=== PATIENT | female | born 1950 | race African-American/Black ===

== ENCOUNTER 2017-07-12 13:20 | Emergency (ER) | payer OTHER ==
[~2017-07-12] VITALS: Ht 154.9 cm; Wt 120.2 kg
--- NOTE | ~2017-07-12 | EKG ---
[place] [place] [address] [facility] [place] [address] ELECTROCARDIOGRAM REPORT Name: SUSANNE ARANA Room #: [facility]#: [id number] Admission: 07/12/17 Attend Phys: Discharge: 07/12/17 Date of : 50 Report #: [id number] THIS REPORT FOR: //name// [facility] ED Test Date: 2017-07-12 Test Time: 13:28:39 Pat Name: SUSANNE ARANA Department: Room: Gender: F Envelope Adjuster: [id number] : 1950 Requested By: Zainab Fleming Order Number: [id number] MD: Tom Fields Measurements Intervals [place] Rate: 62 P: 28 [place]: 194 QRS: 3 QRSD: 95 T: 21 QT: 476 QTc: 484 Interpretive Statements Sinus rhythm Normal tracing Compared to ECG 08/08/2015 21:52:16 Ventricular premature complex(es) no longer present Electronically Signed On 07-13-2017 13:47:57 CDT by Tom Fields [email or web address] <ELECTRONICALLY SIGNED> By: Tom Fields MD, [facility] 07/13/17 1347 1328 1328 Tom Fields MD, [facility] /EPI
[~2017-07-12 13:20] MED LIST: ABILIFY 5 MG TAB5 M1 PO; ACID CONTROLLER20 MG PO; AMLODIPINE BESYL5 MG PO; ASPIR 8181 MG PO; CARVEDILOL25 MG PO; CEFTIN500 MG PO; COLACE100 MG PO; COUMADIN 2.5MG2.5 M1 PO; COUMADIN 3 MG TA3 MG PO; DUONEB 2.5-0.5 M3 ML INH; FLONASE 0.05%50 MCG NASAL; HYDROCHLOROTHIA25 M2 PO; HYDROCODON-ACE1 EAC7 PO; HYDROCODONE-AP1 EAC6 PO; JANTOVEN5 MG PO; JANUVIA25 MG PO; JANUVIA50 MG PO; KEPPRA 500 MG500 M1 PO; LAMICTAL 25 MG25 MG PO; LAMICTAL100 MG PO; LEVAQUIN 500 M500 M2 PO; MILK OF MA2400 MG/10 PO; MIRALAX17 GM PO; NORCO 5-325 TA1 EACH PO; OXYCODONE HCL 55 MG PO; OXYCONTIN10 M1 PO; PATANOL5 ML OPHTHALMIC; PERCOCET; PRILOSEC OTC20 MG PO; RISPERIDONE1 MG PO; SENNA S TABLET1 EACH PO; SERTRALINE HCL50 MG PO; TRAZODONE PO; TYLENOL325 MG PO; ZOCOR 10 MG TAB10 MG PO; ZOLOFT50 MG PO
[2017-07-12] MEDS ORDERED: ARIPIPRAZOLE10 MG PO (13:30)
[2017-07-12] MEDS ORDERED: NORVASC2.5 MG PO (13:30)
[2017-07-12] MEDS ORDERED: OMEPRAZOLE 20 M20 M1 PO (13:30)
[2017-07-12 13:47] LABS: BASOPHILS 0.9 % (0.0-2.0); EOSINOPHILS 2.7 % (0.0-3.0); HEMATOCRIT 39.5 % (37.0-47.0); HEMOGLOBIN 12.3 gm/dL (12.0-15.0); MANUAL DIFF NO; MCH 27.3 pg (26.0-34.0); MCHC 31.2 g/dL (28.0-37.0); MCV 87.3 fL (80.0-100.0); MONOCYTES 9.6 % (1.0-8.0); PLATELET COUNT 301 thou/uL (150-400); POLYS 54.8 % (36.0-66.0); RBC 4.52 mil/uL (4.20-5.00); RDW 15.4 % (10.5-14.5); WBC 7.3 thou/uL (4.0-11.0)
[2017-07-12 13:55] LABS: CREATININE 1.5 mg/dL (0.6-1.0); POTASSIUM 4.1 mmol/L (3.5-5.1)
== END 2017-07-12 16:15 ==
LOC: ER 13:20
PROVIDERS: Emergency Medicine
DX: J06.9 Acute upper respiratory infection, unspecified (principal); G47.33 Obstructive sleep apnea (adult) (pediatric); J44.9 Chronic obstructive pulmonary disease, unspecified; E78.5 Hyperlipidemia, unspecified; E11.22 Type 2 diabetes mellitus with diabetic chronic kidney disease; N18.3 Chronic kidney disease, stage 3 (moderate); Z90.710 Acquired absence of both cervix and uterus; Z96.651 Presence of right artificial knee joint; Z87.440 Personal history of urinary (tract) infections; Z88.5 Allergy status to narcotic agent; Z88.6 Allergy status to analgesic agent

== ENCOUNTER 2020-12-04 18:22 | Inpatient (IN) | payer OTHER ==
[~2020-12-04] VITALS: Ht 165.1 cm; Wt 81.4 kg
[2020-12-04 18:22] VITALS: BP 138/89
[~2020-12-04 18:22] MED LIST changes: +ARIPIPRAZOLE10 MG PO; +CEFDINIR300 MG PO; +NORVASC2.5 MG PO; +OMEPRAZOLE 20 M20 M1 PO; +VITAMIN D50000 UNIT PO
[2020-12-04] MEDS ORDERED: PROTONIX40 M4 PO (18:26)
[2020-12-04] MEDS ORDERED: MILK OF MA400 MG/5 M PO (18:26)
[2020-12-04] MEDS ORDERED: MINIPRESS2 MG PO (18:27)
[2020-12-04] MEDS ORDERED: ZINC SULFATE220 MG PO (18:28)
[2020-12-04] MEDS ORDERED: DERMACINRX5000 UNI1 PO (18:28)
[2020-12-04] MEDS ORDERED: VITAMIN C500 M2 PO (18:28)
[2020-12-04 18:58] LABS: ABSOLUTE NEUTROPHILS 2.6 thou/uL (1.4-8.2); BASOPHILS 0.4 % (0.0-2.0); HEMATOCRIT 39.5 % (37.0-47.0); HEMOGLOBIN 12.8 gm/dL (12.0-15.0); LYMPHOCYTES 28.1 % (24.0-44.0); MCH 29.3 pg (26.0-34.0); MCHC 32.4 g/dL (28.0-37.0); MCV 90.3 fL (80.0-100.0); MONOCYTES 12.9 % (1.0-8.0); PLATELET COUNT 198 thou/uL (150-400); POLYS 58.6 % (36.0-66.0); RBC 4.37 mil/uL (4.20-5.00); RDW 16.1 % (10.5-14.5); WBC 4.3 thou/uL (4.0-11.0)
[2020-12-04 19:06] LABS: CALCIUM 8.9 mg/dL (8.5-10.1); CREATININE 1.6 mg/dL (0.6-1.0)
[2020-12-04 19:13] LABS: APTT 30.3 Seconds (24.5-32.8); INR 1.1
[2020-12-04 19:14] LABS: ALBUMIN 3.3 g/dL (3.4-5.0); TOTAL BILIRUBIN 0.4 mg/dL (0.2-1.0); TOTAL PROTEIN 8.4 g/dL (6.4-8.2)
[2020-12-05 05:22] LABS: CALCIUM 8.3 mg/dL (8.5-10.1); CREATININE 1.6 mg/dL (0.6-1.0); MAGNESIUM 2.3 mg/dL (1.8-2.4); POTASSIUM 4.1 mmol/L (3.5-5.1)
[2020-12-05 05:24] LABS: HEMATOCRIT 40.6 % (37.0-47.0); HEMOGLOBIN 12.4 gm/dL (12.0-15.0); MCH 28.4 pg (26.0-34.0); MCHC 30.6 g/dL (28.0-37.0); MCV 92.9 fL (80.0-100.0); RBC 4.37 mil/uL (4.20-5.00); RDW 16.5 % (10.5-14.5); WBC 4.5 thou/uL (4.0-11.0)
--- NOTE | 2020-12-05 07:40 | EKG ---
[address] [place] [address] ELECTROCARDIOGRAM REPORT Name: SUSANNE ARANA Room #: 170-1 ADM IN M.R.#: [id number] Admission: 12/04/20 Attend Phys: Orestes La MD Discharge: Date of : 50 Report #: [id number] [facility] ED Test Date: 2020-12-04 Test Time: 18:50:17 Pat Name: SUSANNE ARANA Department: Room: 170 Gender: F Purchasing Analyst: Tess CORTEZ : 1950 Requested By: Jordan Mishra Order Number: [id number] MD: Dhruv Torres Measurements Intervals [place] Rate: 86 P: 29 LA: 167 QRS: -3 QRSD: 94 T: 20 QT: 380 QTc: 455 Interpretive Statements Sinus rhythm Consider left atrial enlargement Compared to ECG 04/21/2018 06:49:43 Sinus bradycardia no longer present Prolonged QT interval no longer present Electronically Signed On 12-05-2020 7:40:20 [employer]UC[employer] by Dhruv Torres [email or web address] <ELECTRONICALLY SIGNED> By: Dhruv Torres MD, [facility] 12/05/20 0740 49 49 Dhruv Torres MD, FAC /EPI
--- NOTE | 2020-12-05 10:31 | NUR ---
70 year old female presenting to the ED via EMS from [facility] for a reported fever today and worsening mental status. Pt was found to be hypoxic at her longterm. COVID Antigen Positive in ED with symptoms of temp of 103.1. At current patient is on 2 liters per NC and sats have since maintained above 95%. The patient has been admitted to a hospitalist for Acute hypoxic respiratory failure, COPD/JEROME, COVID-19 infection W/ Fever, HTN, HLD, Type 2 DM, PTSD/depression/bipolar disorder, CKD and DVT/GI Prophylaxis. Ciara Li is listed as the daughter of next of Kin at [phone] and other daughter Adriana Ceja is listed as the person of notification at [phone]. Called and spoke with Ciara cota daughter and explained CM role. Ciara did state that both she and her sister Adriana can be updated on information and explained we would move to contacting one family member by calling her first to which she agreed. CM will follow for discharge needs as daughter discussed a return to [facility] upon discharge.
--- NOTE | 2020-12-05 12:44 | NUR ---
ID AT BEDSIDE SEEING PATIENT
--- NOTE | 2020-12-05 13:34 | HC ---
[facility] [place] [address] CONSULTATION Name: SUSANNE ARANA Room #: 170-1 ADM IN M.R.#: [id number] Admission: 12/04/20 Attend Phys: Orestes aL MD Discharge: Date of : 50 Report #: [id number] THIS REPORT FOR: cc: Terrell Wallace MD, Ramilo MD Barry, Joseph W. MD ~ DATE OF SERVICE: 12/05/2020 INFECTIOUS DISEASE CONSULTATION ATTENDING PHYSICIAN: Dr. La. REASON FOR EVALUATION: COVID-19 infection, complicated by altered mental status, hypoxemia with pneumonitis with significant underlying medical disease burden including diabetes mellitus, previous stroke, COPD. She apparently lives in a facility, was found to be more encephalopathic, febrile when evaluated, felt to be hypoxemic. She was referred to the Emergency Room where she was evaluated and found to be altered. Chest x-ray was fairly unremarkable including cardiomegaly. She had an elevated creatinine of 1.6. Lactic acid was normal at 0.7. Procalcitonin 0.08, was positive for COVID antigen. She has been placed on oxygen at 2 liters per nasal cannula. She was febrile on admission at 103.1. She is unable to give any more details of her history. She was empirically started on corticosteroids. ALLERGIES: LISTED TO PENICILLINS, MORPHINE, CODEINE, OXYCODONE, TRAMADOL. CURRENT MEDICATIONS: Include cholecalciferol, aripiprazole, sertraline, aspirin, amlodipine, atorvastatin, heparin subcutaneously twice a day, ascorbic acid, carvedilol, pantoprazole, insulin lispro sliding scale, methylprednisolone. PAST MEDICAL HISTORY: Peripheral vascular disease, epilepsy, diabetes mellitus type 2, renal insufficiency, obstructive sleep apnea, COPD, hyperlipidemia. SOCIAL HISTORY: Nonsmoker. No illicit drug use. No current ethanol. FAMILY HISTORY: Noncontributory. REVIEW OF SYSTEMS: Not obtainable. PHYSICAL EXAMINATION: GENERAL: She appears chronically ill and undernourished. She is barely arousable. She appears to be in [id number]-fe-nklsqzrp distress. VITAL SIGNS: T-max 103.1, more recently 99, pulse 67, respirations 16, blood pressure 110/68. [address] [address] CONSULTATION Name: SUSANNE ARANA Room #: 1701 ADM IN M.R.#: [id number] Admission: 12/04/20 Attend Phys: Orestes La MD Discharge: Date of : 50 Report #: [id number] SKIN: Warm, dry, no rashes. HEENT: Nasal cannula in place. NECK: Appears to be supple. LUNGS: Diminished breath sounds. Few scattered crackles. HEART: Regular. I do not appreciate a murmur. ABDOMEN: Mildly obese, soft. There are no overt peritoneal signs. GENITOURINARY AND RECTAL: Deferred. LABORATORY DATA: Blood cultures sterile thus far. Electrolytes: Sodium 145, potassium 4.1, chloride 110, bicarbonate is 21, anion gap of 14, BUN and creatinine 34 and 1.6. CBC: White count of 4.5, H and H 12.4 and 40.6, platelets of 172. Sed rate of 56. Ferritin 956. ASSESSMENT: COVID-19 infection, complicated by respiratory failure. Plain radiograph without evidence of pneumonitis. I think likely has underlying changes make her it a high risk for progression. I think it is reasonable to initiate therapy with remdesivir as well as ivermectin and empiric antibacterial, remains quite tenuous at this point, difficult to ascertain if there is an occult process going on in addition to this. We will see how she does clinically over the next 24-48 hours. <ELECTRONICALLY SIGNED> By: Gurjit Sifuentes MD 12/05/20 1334 1256 1331 Gurjit Sifuentes MD /nt
[2020-12-05 16:24] VITALS: BP 124/76
[2020-12-05 16:26] LABS: URINE BILIRUBIN NEGATIVE (Negative); URINE BLOOD 3+ (Negative); URINE CLARITY CLOUDY; URINE COLOR YELLOW; URINE GLUCOSE-RANDOM* NEGATIVE (Negative); URINE KETONES NEGATIVE (Negative); URINE NITRITE-REFLEX NEGATIVE (Negative); URINE PROTEIN (DIPSTICK) 2+ (Negative); URINE SPECIFIC GRAVITY 1.025 (1.005-1.035); URINE UROBILINOGEN 0.2 E.U./dl (0.2-1.0)
[2020-12-05 16:28] LABS: URINE LEUKOCYTES-REFLEX 3+ (Negative)
[2020-12-05 16:35] LABS: BACTERIA-REFLEX >30 Many /HPF (None Seen); CASTS None Seen /LPF (None Seen); CRYSTALS None Seen /LPF (None Seen); SQUAMOUS None Seen /LPF (0-3); URINE RBC 0-2 Rare /HPF (0-2); URINE WBC-REFLEX >25 Many /HPF (0-5)
--- NOTE | 2020-12-05 16:53 | NUR ---
PT IS FROM [facility] FAXED CLINICAL UPDATE TO FACILITY SPOKE WITH YIN IN ADM SHE RECEIVED UPDATE.
[2020-12-05 18:11] VITALS: BP 125/73
[2020-12-05 18:23] VITALS: BP 111/66
[2020-12-05 20:24] VITALS: BP 115/71
[2020-12-06 00:03] VITALS: BP 116/72
[2020-12-06] MEDS ORDERED: LUBRICANT EYE D10 ML EA. EYE (01:41)
--- NOTE | 2020-12-06 03:15 | NUR ---
PT ARRIVED TO UNIT AT 1830. PT SETTLED AND ASSESSMENT COMPLETED. CARE PLAN, INTERVENTIONS, AND MED REC COMPLETED. MICHAEL INSERTED IN ER. MRSA PCR COLLECTED. PT AMS, AND PAPERWORK FROM SNF STATES PT HAS DEMENTIA. PT ALSO COVID +. FOLLOWING POC WITH IVF AND IVPB ANTIBIOTICS.
[2020-12-06 05:36] VITALS: BP 118/68
[2020-12-06 06:03] LABS: HEMATOCRIT 43.9 % (37.0-47.0); HEMOGLOBIN 13.3 gm/dL (12.0-15.0); MCH 28.5 pg (26.0-34.0); MCHC 30.3 g/dL (28.0-37.0); MCV 94.1 fL (80.0-100.0); RBC 4.66 mil/uL (4.20-5.00); RDW 16.8 % (10.5-14.5); WBC 4.2 thou/uL (4.0-11.0)
[2020-12-06 07:12] LABS: CALCIUM 8.7 mg/dL (8.5-10.1); CREATININE 1.4 mg/dL (0.6-1.0); DIRECT BILIRUBIN 0.1 mg/dL (<0.1-0.2); MAGNESIUM 2.4 mg/dL (1.8-2.4); PHOSPHORUS 4.4 mg/dL (2.6-4.7); POTASSIUM 4.6 mmol/L (3.5-5.1); TOTAL BILIRUBIN 0.3 mg/dL (0.2-1.0); TOTAL PROTEIN 7.8 g/dL (6.4-8.2)
[2020-12-06 07:24] VITALS: BP 111/65
--- NOTE | 2020-12-06 13:55 | NUR ---
FAXED CLINICAL UPDATES TO [facility] WITH COVID RESULTS. P [phone]; FAX [phone]
[2020-12-06 15:05] VITALS: BP 106/65
--- NOTE | 2020-12-06 16:21 | NUR ---
INITIAL ASSESSMENT: CONOR reviewed chart and spoke with nursing and attending physician. Pt was admitted from [facility] due to hypoxia. Pt placed in Enhanced Isolation due to COVID-19. Pt is afebrile and on 2L of O2. Pt is on IV abx and IV steroids. Pt is on Remdesivir and Ivermectin. regional planner faxed clinical info to [facility] for review. CONOR spoke with Meghann in admissions, who states that they are not able to accept pt back, as they have closed their COVID unit. Pt would be able to go to another [facility] facility who is taking COVID pts ([facility]). [facility] staff to notify pt's family. CONOR is following to assist as needed with discharge planning.
--- NOTE | 2020-12-06 18:58 | NUR ---
RN ASSUMED PT'S CARE AT 0700AM, PT KNOWS HER NAME , PT CAN FOLLOW SOME COMMANDS, BUT PT IS CONFUSED, PT NEEDS HELP MEALS AND ADL, PT IS ON O2 2L/MIN/NC , PT'S VS ARE STABLE, PT IS CONTINUING IV FLUID AND IV ABX.PT DOES NOT HAVE FEVER AND SOB AT DAY SHIFT.
[2020-12-06 19:12] VITALS: BP 120/74
--- NOTE | 2020-12-06 22:24 | NUR ---
PT RESTING IN BED. IVF INTACT. O2 PER NC. LUNGS DIMINISHED. MICHAEL TO JAMES. PT TALKATIVE, ASKING ABOUT HER MEDICATIONS AND FOR WATER. STAFF TO REPOSITION PATIENT. BED ALARM ON.
[2020-12-07 03:56] VITALS: BP 121/68
[2020-12-07 06:15] LABS: HEMATOCRIT 38.6 % (37.0-47.0); HEMOGLOBIN 11.9 gm/dL (12.0-15.0); MCH 28.4 pg (26.0-34.0); MCHC 30.7 g/dL (28.0-37.0); MCV 92.4 fL (80.0-100.0); RBC 4.17 mil/uL (4.20-5.00); RDW 16.2 % (10.5-14.5); WBC 4.4 thou/uL (4.0-11.0)
[2020-12-07 06:34] LABS: ALBUMIN 2.6 g/dL (3.4-5.0); ANION GAP 12 mmol/L (7-16); BUN 36 mg/dL (7-18); CALCIUM 8.6 mg/dL (8.5-10.1); CHLORIDE 113 mmol/L (98-107); CO2 22 mmol/L (21-32); CREATININE 1.2 mg/dL (0.6-1.0); DIRECT BILIRUBIN < 0.1 mg/dL (<0.1-0.2); GLUCOSE 146 mg/dL (74-106); PHOSPHORUS 2.2 mg/dL (2.6-4.7); SGOT 40 U/L (15-37); SGPT 16 U/L (14-59); SODIUM 147 mmol/L (136-145); TOTAL BILIRUBIN 0.2 mg/dL (0.2-1.0); TOTAL PROTEIN 7.1 g/dL (6.4-8.2)
[2020-12-07 06:36] LABS: POTASSIUM 3.5 mmol/L (3.5-5.1)
[2020-12-07 07:37] VITALS: BP 122/77
--- NOTE | 2020-12-07 13:39 | NUR ---
CONOR reviewed chart and spoke with nursing and attending physician. Pt remains in Enhanced Isolation. Pt is afebrile and on2L of O2. Pt is on IV abx and IV steroids. Pt is on Ivermectin and Remdesivir. CONOR spoke with pt's dtr, Ciara, via phone to discuss plan for pt to discharge to an alternate [facility] facility due to COVID. [facility] is accepting COVID pts at this time. CONOR sent message for Elina in admissions at [facility]. Pt info was forwarded to [facility] from [facility]. Pt's dtr is agreeable with discharge plan. CONOR is following to assist as needed with discharge planning.
[2020-12-07 15:13] VITALS: BP 104/68
--- NOTE | 2020-12-07 15:44 | NUR ---
PT CARE ASSUMED AT 0700, ALERT AND ORIENTED X3, PT DENIES PAIN, NAUSEA AND VOMITTING. PT IS ON 2L OF OXYGEN, NO SIGNS OF DISTRESS NOTED. ASSESSMENT AND VITALS STABLE. MICHAEL IN PLACE, PATENT AND SECURED. REPOSITIONED EVERY [address] WILL CONTINUE TO MONITOR. PT DAUGHTER CALLED AND WAS UPDATED ABPUT PT CARE.
[2020-12-07 19:26] VITALS: BP 111/69
--- NOTE | 2020-12-07 21:52 | NUR ---
PT ALERT X2. VSS 98.8. 98% ON 2LNC NO C/O PAIN. NO S/S DISTRESS. BED DOWN, CALL LIGHT IN REACH SIDE RAILS UP X2. BED ALARM ON. NO S/S DISTRESS PRESENTLY.
[2020-12-08 03:46] VITALS: BP 117/69
--- NOTE | 2020-12-08 05:17 | NUR ---
PT RESTING QUIETLY. VSS ASSESSMENT UNCHANGED. PROGRESSING TOWARDS D/C GOALS.
[2020-12-08 06:11] LABS: HEMOGLOBIN 11.4 gm/dL (12.0-15.0); MCH 28.5 pg (26.0-34.0); MCHC 31.8 g/dL (28.0-37.0); MCV 89.8 fL (80.0-100.0); RBC 4.01 mil/uL (4.20-5.00); RDW 15.9 % (10.5-14.5); WBC 3.9 thou/uL (4.0-11.0)
[2020-12-08 06:30] LABS: ALBUMIN 2.5 g/dL (3.4-5.0); ANION GAP 11 mmol/L (7-16); BUN 32 mg/dL (7-18); CALCIUM 8.5 mg/dL (8.5-10.1); CHLORIDE 112 mmol/L (98-107); CO2 24 mmol/L (21-32); CREATININE 1.2 mg/dL (0.6-1.0); DIRECT BILIRUBIN < 0.1 mg/dL (<0.1-0.2); GLUCOSE 159 mg/dL (74-106); MAGNESIUM 1.9 mg/dL (1.8-2.4); PHOSPHORUS 1.5 mg/dL (2.5-4.9); POTASSIUM 3.2 mmol/L (3.5-5.1); SGOT 29 U/L (15-37); SGPT 20 U/L (30-65); SODIUM 147 mmol/L (136-145); TOTAL BILIRUBIN 0.2 mg/dL (0.2-1.0); TOTAL PROTEIN 6.9 g/dL (6.4-8.2)
[2020-12-08 07:54] VITALS: BP 114/69
--- NOTE | 2020-12-08 10:49 | NUR ---
CARE ASSUMED AT 0700, ALERT AND ORIENTED X3, FORGETFUL AT TIMES. PT DENIES ANY PAIN, NAUSEA AND VOMITTING. PT IS ON 1L OF OXYGEN, NO SIGNS OF DISTRESS. MICHAEL IN PLACE, SECURED AND PATENT. FALL PRECAUTION IN PLACE. WILL CONTINUE TO MONITOR.
--- NOTE | 2020-12-08 14:50 | NUR ---
NOTE PER WAREHOUSE ASSOCIATE DRIVER: CONOR spoke with nursing and attending physician. Pt remains in Enhanced Isolation. Pt is progressing towards goals for discharge. Pt is completing course of Remdesivir. Discharge to [facility] is anticipated for tomorrow. CONOR spoke with Elina at [facility] who states they are able to accept pt from a clinical standpoint. Awaiting confirmation of bed availability. materials planner/production planner to fax updates to [facility] for review. CONOR spoke with pt's dtr, Ciara, via phone to provide update and notify of weekend discharge. Ciara is aware and agreeable with discharge plan. Ciara to be notified when discharge arrangements are in place. Finalized discharge orders will need to be faxed to [facility] when available. Pt's chart will need to be copied. Nursing will need to call report. CONOR is following and is available to assist should needs arise. [facility]
[2020-12-08 15:19] LABS: URINE BILIRUBIN NEGATIVE (Negative); URINE BLOOD 2+ (Negative); URINE CLARITY CLEAR; URINE COLOR YELLOW; URINE GLUCOSE-RANDOM* NEGATIVE (Negative); URINE KETONES NEGATIVE (Negative); URINE NITRITE-REFLEX NEGATIVE (Negative); URINE PROTEIN (DIPSTICK) TRACE (Negative); URINE SPECIFIC GRAVITY 1.015 (1.005-1.035); URINE UROBILINOGEN 0.2 E.U./dl (0.2-1.0)
[2020-12-08 15:38] LABS: URINE LEUKOCYTES-REFLEX 1+ (Negative)
[2020-12-08 15:39] LABS: BACTERIA-REFLEX 1-9 Few /HPF (None Seen); SQUAMOUS 0-3 Few /LPF (0-3); URINE RBC 3-10 Few /HPF (0-2); URINE WBC-REFLEX 6-15 Few /HPF (0-5)
[2020-12-08 15:40] LABS: CASTS None Seen /LPF (None Seen); CRYSTALS None Seen /LPF (None Seen); YEAST-REFLEX Present (None Seen)
[2020-12-08 16:16] VITALS: BP 102/48
--- NOTE | 2020-12-08 17:12 | NUR ---
INCREASE PT OXYGEN UP TO 2L DUE O2 SAT 86%. PT O2 SAT AT 93 NOW.
[2020-12-08 19:37] VITALS: BP 145/90
[2020-12-09 04:02] VITALS: BP 151/89
--- NOTE | 2020-12-09 06:05 | NUR ---
VSS OVERNIGHT. PT IS A/0X2 WITH SOME CONFUSION, BUT IS PRETTY SHARP WITH THE SARCASM. MICHAEL IN PLACE WITH GOOD OUTPUT. POC WITH IVF AND IVPB ANTIBIOTICS. HOURLY ROUNDING.
[2020-12-09 08:48] VITALS: BP 128/77
[2020-12-09 08:53] LABS: HEMATOCRIT 37.3 % (37.0-47.0); HEMOGLOBIN 11.8 gm/dL (12.0-15.0); MCH 28.3 pg (26.0-34.0); MCHC 31.8 g/dL (28.0-37.0); RBC 4.19 mil/uL (4.20-5.00); RDW 16.1 % (10.5-14.5); WBC 4.1 thou/uL (4.0-11.0)
[2020-12-09 09:00] VITALS: BP 124/78
[2020-12-09 09:11] LABS: ALBUMIN 2.6 g/dL (3.4-5.0); ANION GAP 10 mmol/L (7-16); BUN 29 mg/dL (7-18); CALCIUM 8.9 mg/dL (8.5-10.1); CHLORIDE 106 mmol/L (98-107); CO2 26 mmol/L (21-32); CREATININE 1.1 mg/dL (0.6-1.0); DIRECT BILIRUBIN < 0.1 mg/dL (<0.1-0.2); GLUCOSE 166 mg/dL (74-106); MAGNESIUM 1.8 mg/dL (1.8-2.4); PHOSPHORUS 1.2 mg/dL (2.5-4.9); SGOT 26 U/L (15-37); SGPT 19 U/L (30-65); SODIUM 142 mmol/L (136-145); TOTAL BILIRUBIN 0.4 mg/dL (0.2-1.0); TOTAL PROTEIN 7.2 g/dL (6.4-8.2)
[2020-12-09 09:13] LABS: POTASSIUM 2.9 mmol/L (3.5-5.1)
[2020-12-09] MEDS ORDERED: BACTRIM DS TAB1 EACH PO (10:39)
[2020-12-09] MEDS ORDERED: IPRAT-ALBUT 0.5-3 ML INH (10:39)
[2020-12-09] MEDS ORDERED: PREDNISONE 10 M10 M1 PO (10:40)
[2020-12-09 15:48] VITALS: BP 124/78
--- NOTE | 2020-12-09 16:29 | NUR ---
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
[2020-12-09 17:02] VITALS: BP 124/78
--- NOTE | 2020-12-09 18:27 | NUR ---
TRANSPORTATION FINANCIAL MANAGEMENT PT TO SNF ABOUT 1800PM, PT'S R ARM PIV AND MICHAEL CATHETER HAD REMOVED , PT WAS TOLERATED.RN LEFT PHONE NUMBER TO SNF AND TRANSPORTATION PERSON TO ASK CALL BACK FOR REPORT, BECAUSE RN CANNOT REACH BY CALLING 2 TIMES TO SNF.
== END 2020-12-09 17:31 | DRG 871 ==
LOC: ER 18:22 → EROBS 20:37 → 3W 20:37 → EROBS 12-05 15:23 → 3W 12-05 18:07
PROVIDERS: Emergency Medicine; Nurse Practitioner Family; Specialist; ADMIT Internal Medicine; ATTEND Internal Medicine
PROC: XW033E5 Introduction of Remdesivir Anti-infective into Peripheral Vein, Percutaneous Approach, New Technology Group 5 (ICD-10-PCS; principal; 2020-12-05)
DX: A41.89 Other specified sepsis (principal); U07.1 COVID-19; J96.01 Acute respiratory failure with hypoxia; G92 Toxic encephalopathy; J12.82 Pneumonia due to coronavirus disease 2019; N39.0 Urinary tract infection, site not specified; N17.9 Acute kidney failure, unspecified; J44.0 Chronic obstructive pulmonary disease with (acute) lower respiratory infection; E87.0 Hyperosmolality and hypernatremia; E44.1 Mild protein-calorie malnutrition; E11.51 Type 2 diabetes mellitus with diabetic peripheral angiopathy without gangrene; G47.33 Obstructive sleep apnea (adult) (pediatric); E78.5 Hyperlipidemia, unspecified; G40.909 Epilepsy, unspecified, not intractable, without status epilepticus; E66.9 Obesity, unspecified; Z96.651 Presence of right artificial knee joint; Z66 Do not resuscitate; F43.10 Post-traumatic stress disorder, unspecified; N18.9 Chronic kidney disease, unspecified; I12.9 Hypertensive chronic kidney disease with stage 1 through stage 4 chronic kidney disease, or unspecified chronic kidney disease; F32.9 Major depressive disorder, single episode, unspecified; Z68.29 Body mass index [BMI] 29.0-29.9, adult; Z79.82 Long term (current) use of aspirin; Z79.899 Other long term (current) drug therapy; Z90.710 Acquired absence of both cervix and uterus; Z88.6 Allergy status to analgesic agent; Z88.0 Allergy status to penicillin; Z88.8 Allergy status to other drugs, medicaments and biological substances; Z86.73 Personal history of transient ischemic attack (TIA), and cerebral infarction without residual deficits
CPT/HCPCS: 10879

== ENCOUNTER 2021-02-23 08:40 | Emergency (ER) | payer OTHER ==
[~2021-02-23] VITALS: Ht 154.9 cm; Wt 72.1 kg
[~2021-02-23 08:40] MED LIST changes: +BACTRIM DS TAB1 EACH PO; +DERMACINRX5000 UNI1 PO; +IPRAT-ALBUT 0.5-3 ML INH; +LUBRICANT EYE D10 ML EA. EYE; +MILK OF MA400 MG/5 M PO; +MINIPRESS2 MG PO; +PREDNISONE 10 M10 M1 PO; +PROTONIX40 M4 PO; +VITAMIN C500 M2 PO; +ZINC SULFATE220 MG PO
--- NOTE | 2021-02-23 09:24 | EKG ---
[place] [address] [address] [place] [address] ELECTROCARDIOGRAM REPORT Name: SUSANNE ARANA [id number] Admission: 02/23/21 Attend Phys: Discharge: Date of : 50 Report #: [id number] [facility] ED Test Date: 2021-02-23 Test Time: 08:57:46 Pat Name: SUSANNE ARANA Department: Room: Gender: F Hand Paster: max : 1950 Requested By: Deejay Damon Order Number: [id number] MD: Tom Fiedls Measurements Intervals [place] Rate: 72 P: 30 [place]: 196 QRS: 7 QRSD: 114 T: 35 QT: 442 QTc: 484 Interpretive Statements Sinus rhythm Multiple ventricular premature complexes Nonspecific T wave abnormality Compared to ECG 12/04/2020 18:50:17 Ventricular premature complex(es) now present Electronically Signed On 02-23-2021 9:24:20 CDT by Tom Fields [email or web address] <ELECTRONICALLY SIGNED> By: Tom Fields MD, [facility] 02/23/21 0924 0857 0857 Tom Fields MD, FACC /EPI
[2021-02-23 10:13] LABS: ABSOLUTE NEUTROPHILS 5.5 thou/uL (1.4-8.2); BASOPHILS 0.9 % (0.0-2.0); EOSINOPHILS 0.4 % (0.0-3.0); HEMATOCRIT 38.8 % (37.0-47.0); HEMOGLOBIN 12.5 gm/dL (12.0-15.0); LYMPHOCYTES 19.3 % (24.0-44.0); MCH 29.2 pg (26.0-34.0); MCHC 32.2 g/dL (28.0-37.0); MCV 90.8 fL (80.0-100.0); MONOCYTES 9.4 % (1.0-8.0); PLATELET COUNT 297 thou/uL (150-400); RBC 4.28 mil/uL (4.20-5.00); RDW 15.2 % (10.5-14.5); WBC 7.8 thou/uL (4.0-11.0)
[2021-02-23 11:07] LABS: URINE BILIRUBIN NEGATIVE (Negative); URINE BLOOD 2+ (Negative); URINE CLARITY CLOUDY; URINE COLOR YELLOW; URINE GLUCOSE-RANDOM* NEGATIVE (Negative); URINE KETONES NEGATIVE (Negative); URINE NITRITE-REFLEX NEGATIVE (Negative); URINE PROTEIN (DIPSTICK) 3+ (Negative); URINE SPECIFIC GRAVITY 1.025 (1.005-1.035); URINE UROBILINOGEN 0.2 E.U./dl (0.2-1.0)
[2021-02-23 11:08] LABS: URINE LEUKOCYTES-REFLEX 1+ (Negative)
[2021-02-23 11:16] LABS: SQUAMOUS 4-10 Moderate /LPF (0-3)
[2021-02-23 11:17] LABS: RENAL EPITHELIAL CELLS 0-3 Few /LPF (None Seen); TRANSITIONAL EPITHEL CELL 0-3 Few /LPF (None Seen)
[2021-02-23 11:18] LABS: AMORPHOUS URATES Moderate /LPF (None Seen); CASTS None Seen /LPF (None Seen); URINE RBC 3-10 Few /HPF (0-2); URINE WBC-REFLEX 6-15 Few /HPF (0-5)
[2021-02-23 11:19] LABS: BACTERIA-REFLEX >30 Many /HPF (None Seen); WBC CLUMPS Few (None Seen)
[2021-02-23 11:30] LABS: CREATININE 1.1 mg/dL (0.6-1.0)
[2021-02-23 11:31] LABS: POTASSIUM 4.7 mmol/L (3.5-5.1)
[2021-02-23] MEDS ORDERED: BACTRIM DS TAB1 EACH PO (12:20)
[2021-02-23 13:40] VITALS: BP 141/63
== END 2021-02-23 14:06 | disposition home or self-care (01) ==
LOC: ER 08:40
PROVIDERS: Emergency Medicine
DX: S00.83XA Contusion of other part of head, initial encounter (principal); E86.0 Dehydration; M79.601 Pain in right arm; J44.9 Chronic obstructive pulmonary disease, unspecified; E78.5 Hyperlipidemia, unspecified; K21.9 Gastro-esophageal reflux disease without esophagitis; E11.22 Type 2 diabetes mellitus with diabetic chronic kidney disease; I12.9 Hypertensive chronic kidney disease with stage 1 through stage 4 chronic kidney disease, or unspecified chronic kidney disease; N18.4 Chronic kidney disease, stage 4 (severe); Z79.82 Long term (current) use of aspirin; Z79.899 Other long term (current) drug therapy; Z88.8 Allergy status to other drugs, medicaments and biological substances; Z88.0 Allergy status to penicillin; Z88.5 Allergy status to narcotic agent; W06.XXXA Fall from bed, initial encounter; Y93.89 Activity, other specified; Y92.89 Other specified places as the place of occurrence of the external cause; Y99.8 Other external cause status

== ENCOUNTER 2021-10-14 19:42 | Emergency (ER) | payer OTHER ==
[~2021-10-14] VITALS: Ht 154.9 cm; Wt 87.3 kg
--- NOTE | ~2021-10-14 | EMS ---
[address] [address] EMS Patient Care Report Name: SUSANNE ARANA Room #: DEP Miquel#: [id number] Admission: 10/14/21 Attend Phys: Discharge: 10/14/21 Date of : 50 Report #: [id number] THIS REPORT FOR: //name// Report Transmitted: 10/15/2021 09:54 EMS Care Summary [place], [place]/[facility] Incident [phone] @ 10/14/2021 19:05 Incident Location [facility] ESEQUIEL Brown B1 Patient SUSANNE ARANA Female, 70 Years 2014-54-88 Patient Address Patient History Asthma,Epilepsy,Diabetes,Stroke/CVA, Patient Allergies Morphine, Patient Medications Hydrochlorothiazide (Hctz), Chief Complaint pain Disposition Transported No Lights/[place] Dispatch Reason Sick Person Transported To [facility] Narrative RESPONDED TO SICK AT [facility]. PT FOUND SITTING IN WHEELCHAIR ALERT AND ORIENTED. PT REPORTS WAKING UP THIS MORNING WITH LOW BACK PAIN AND RIGHT ARM PAIN. PT DENIES ANY FALLS OR INJURIES RECENTLY. PT LIFTED BY MADHURI AND PLACED ON COT WITH SEATBELTS APPLIED. PT VITALS AND 3 LEAD OBTAINED. PT TRANSPORTED TO [facility] WITH NO CHANGES. PT TEAM LIFTED TO BED AND HANDRAILS UP. REPORT GIVEN TO NURSE. [address] [address] EMS Patient Care Report Name: SUSANNE ARANA [id number] Admission: 10/14/21 Attend Phys: Discharge: 10/14/21 Date of : 50 Report #: [id number] Initial Vitals @19:34P: 27,CO: 3,SpO2: 93, @19:34P: 70,R: 18,BP: 140/69,Pain: 8/10,GCS: 15,CO: 4,SpO2: 93,Revised Trauma: 12, @19:35P: 71,BP: 134/68,SpO2: 94, Assessments @19:25MENTAL:Person Oriented,Event Oriented,Place Oriented,Time Oriented,SKIN:HEENT:Head/Face: No Abnormalities,Eyes: No Abnormalities,Neck/Airway: No Abnormalities,LUNG SOUNDS:General: No Abnormalities,Left Upper: No Abnormalities,Right Upper: No Abnormalities,Left Lower: No Abnormalities,Right Lower: No Abnormalities,ABDOMEN:General: No Abnormalities,Left Upper: No Abnormalities,Right Upper: No Abnormalities,Left Lower: No Abnormalities,Right Lower: No Abnormalities,PELVIS//GI:Incontinence,EXTREMITIES:Right Arm: Abnormal Sensation,Left Arm: No Abnormalities,Left Leg: No Abnormalities,Right Leg: No Abnormalities,PULSE:Radial: 2+ Normal,NEURO:No Abnormalities, Impression Acute Pain, not elsewhere classified Procedures @19:26 ALS Assessment Response: UnchangedSucceeded @19:57 3-Lead ECG Response: UnchangedSucceeded Timeline 19:02,Call Received 19:02,Dispatch Notified 19:05,Dispatched 19:06,En Route 19:11,On Scene 19:14,At Patient 19:26,ALS Assessment,Response: UnchangedSucceeded, 19:34,BP: 140/69 M,PULSE: 70,RR: 18 R,SPO2: 93 Ox,ETCO2: ,BG: ,PAIN: 8,GCS: 15, 19:34,BP: / M,PULSE: 27,RR: R,SPO2: 93 Ox,ETCO2: ,BG: ,PAIN: ,GCS: , 19:35,BP: 134/68 M,PULSE: 71,RR: R,SPO2: 94 Ox,ETCO2: ,BG: ,PAIN: ,GCS: , 19:36,Depart Scene 19:38,At Destination 19:57,3-Lead ECG,Response: UnchangedSucceeded, 19:58,Call Closed Disclaimer v1.1 Copyright 2020 [employer] This EMS Care Summary contains data elements from [place] [address] EMS Patient Care Report Name: SUSANNE ARANA [facility] [id number] Admission: 10/14/21 Attend Phys: Discharge: 10/14/21 Date of : 50 Report #: [id number] (which may be displayed differently). It is designed to provide pertinent information for the following purposes: continuity of care, clinical quality, and state data reporting. The complete legal record is available to ED staff and administrators of the receiving hospital in [facility]'s Patient Tracker. All data is provided "as is."
[2021-10-14 22:17] VITALS: BP 149/97
== END 2021-10-14 22:20 ==
LOC: ER 19:42
DX: M79.601 Pain in right arm (principal); I12.9 Hypertensive chronic kidney disease with stage 1 through stage 4 chronic kidney disease, or unspecified chronic kidney disease; E11.22 Type 2 diabetes mellitus with diabetic chronic kidney disease; N18.4 Chronic kidney disease, stage 4 (severe); J44.9 Chronic obstructive pulmonary disease, unspecified; E78.5 Hyperlipidemia, unspecified; F32.9 Major depressive disorder, single episode, unspecified; K21.9 Gastro-esophageal reflux disease without esophagitis; Z90.710 Acquired absence of both cervix and uterus; Z98.51 Tubal ligation status; Z79.899 Other long term (current) drug therapy; Z88.5 Allergy status to narcotic agent; Z88.6 Allergy status to analgesic agent; Z88.0 Allergy status to penicillin